=== PATIENT | female | born 1985 | race African-American/Black ===

== ENCOUNTER 2020-06-07 08:32 | Emergency (ER) | payer SELFPAY ==
--- NOTE | 2020-06-07 08:57 | ER ---
Nurse's Notes [facility] Name: Melinda Villalobos Age: 34 yrs Sex: Female : 1985 Arrival Date: 06/07/2020 Time: 08:37 Bed 5 Private MD: Diagnosis: Disorder of teeth and supporting structures, unspecified-dental pain Presentation: 06/07 08:48 Chief complaint: Patient states: top right tooth pain for 2 days, reports swelling, em unable to tolerate food/drinks, denies fever, pain radiates into right ear. Coronavirus screen: Client denies travel out of the [place] in the last 14 days. At this time, the client does not indicate any symptoms associated with coronavirus-19. Ebola Screen: Patient negative for fever greater than or equal to 101.5 degrees Fahrenheit, and additional compatible Ebola Virus Disease symptoms Patient denies exposure to infectious person. Patient denies travel to an Ebola-affected area in the 21 days before illness onset. No symptoms or risks identified at this time. Initial Sepsis Screen: Does the patient meet any 2 criteria? HR > 90 bpm. No. Patient's initial sepsis screen is negative. Does the patient have a suspected source of infection? No. Patient's initial sepsis screen is negative. Risk Assessment: Do you want to hurt yourself or someone else? Patient reports no desire to harm self or others. Onset of symptoms was June 05, 2020. 08:48 Method Of Arrival: Ambulatory em 08:48 Acuity: JAI 4 em Historical: - Allergies: 08:51 No Known Allergies; em - Home Meds: 08:51 None [Active]; em - PMHx: 08:51 None; em - PSHx: 08:51 None; em - Immunization history:: Adult Immunizations up to date. - Social history:: Smoking status: Patient denies any tobacco usage or history of. Screenin:52 Abuse screen: Denies threats or abuse. Nutritional screening: No deficits noted. em Tuberculosis screening: No symptoms or risk factors identified. Fall Risk None identified. Assessment: 08:53 General: Appears in no apparent distress. comfortable, Behavior is calm, cooperative, em appropriate for age, Denies fever. Pain: Complains of pain in right zygomatic area and right cheek Pain currently is 10 out of 10 on a pain scale. Neuro: Level of Consciousness is awake, alert, obeys commands, Oriented to person, place, time, situation, Appropriate for age. Cardiovascular: Capillary refill < 3 seconds Patient's skin is warm and dry. Respiratory: Airway is patent Respiratory effort is even, unlabored, Respiratory pattern is regular, symmetrical. GI: Abdomen is round non-distended. EENT: Oral mucosa is moist. Derm: Skin is intact, is healthy with good turgor, Skin is pink, warm \T\ dry. Musculoskeletal: Capillary refill < 3 seconds, Range of motion: intact in all extremities. Vital Signs: 08:48 BP 129 / 84; Pulse 106; Resp 20; Temp 97.6; Pulse Ox 100% on R/A; Weight 77.11 kg (R); em Height 5 ft. 2 in. (157.48 cm); Pain 10/10; 08:48 Body Mass Index 31.09 (77.11 kg, 157.48 cm) em ED Course: 08:37 Patient arrived in ED. mr 08:41 Henrik Lord RN is Primary Nurse. em 08:43 Ravi Duarte NP is PHCP. pm1 08:43 Jacques Doshi MD is Attending Physician. pm1 08:51 Triage completed. em 08:51 Arm band placed on. em 08:52 Patient has correct armband on for positive identification. Bed in low position. Call em light in reach. Pulse ox on. NIBP on. 09:09 No provider procedures requiring assistance completed. Patient did not have IV access em during this emergency room visit. Administered Medications: 09:08 Drug: TORadol 60 mg Route: IM; Site: left gluteus; em 09:27 Follow up: Response: No adverse reaction em Outcome: 08:56 Discharge ordered by . pm1 09:22 Discharged to home ambulatory. em 09:22 Condition: good 09:22 Discharge instructions given to patient, Instructed on discharge instructions, follow up and referral plans. medication usage, Demonstrated understanding of instructions, follow-up care, medications, Prescriptions given X 2. 09:27 Patient left the ED. em Signatures: Afshan Jackson mr Henrik Lord RN RN em Ravi Duarte NP INTRANET SPECIALIST pm1
--- NOTE | 2020-06-07 08:57 | EDPHYS ---
Physician Documentation [facility] Name: Melinda Villalobos Age: 34 yrs Sex: Female : 1985 Arrival Date: 06/07/2020 Time: 08:37 Bed 5 Private MD: ED Physician Jacques Doshi HPI: 06/07 08:53 This 34 yrs old Black Female presents to ER via Ambulatory with complaints of Toothache.pm1 08:53 The patient presents with pain, swelling. The problem is located in the upper right pm1 second molar. Onset: The symptoms/episode began/occurred 2 day(s) ago. Modifying factors: the symptoms are aggravated by eating and drinking. Associated signs and symptoms: Pertinent negatives: dysphagia, fever, inability to eat, vomiting. Severity of symptoms: in the emergency department the symptoms are actually worse. The patient has not recently seen a physician. Patient with dental pain to the left upper molar for the past 2 days. Has had issues with this same tooth for many months. Initially cracked and has slowly eroded away. Patient is able to eat and drink but painful to molar. Historical: - Allergies: 08:51 No Known Allergies; em - Home Meds: 08:51 None [Active]; em - PMHx: 08:51 None; em - PSHx: 08:51 None; em - Immunization history:: Adult Immunizations up to date. - Social history:: Smoking status: Patient denies any tobacco usage or history of. ROS: 08:53 Constitutional: Negative for fever, chills, and weight loss, Eyes: Negative for injury, pm1 pain, redness, and discharge. 08:53 ENT: Positive for dental pain, ear pain. 08:53 Cardiovascular: Negative for chest pain, palpitations, and edema, Respiratory: Negative pm1 for shortness of breath, cough, wheezing, and pleuritic chest pain, Abdomen/GI: Negative for abdominal pain, nausea, vomiting, diarrhea, and constipation, Skin: Negative for injury, rash, and discoloration, Neuro: Negative for headache, weakness, numbness, tingling, and seizure. 08:53 ENT: Negative for sore throat, difficulty swallowing, difficulty handling secretions, hoarseness. 08:53 Neck: Positive for swollen nodes, Negative for pain with movement, pain at rest, stiffness. Exam: 08:53 Constitutional: This is a well developed, well nourished patient who is awake, alert, pm1 and in no acute distress. Head/Face: Normocephalic, atraumatic. 08:53 Chest/axilla: Normal chest wall appearance and motion. Nontender with no deformity. No lesions are appreciated. 08:53 Back: No spinal tenderness. No costovertebral tenderness. Full range of motion. Skin: Warm, dry with normal turgor. Normal color with no rashes, no lesions, and no evidence of cellulitis. MS/ Extremity: Pulses equal, no cyanosis. Neurovascular intact. Full, normal range of motion. 08:53 ENT: External ear(s): are unremarkable, Ear canal(s): are normal, TM's: are normal, Posterior pharynx: no acute changes, Dental exam: abscess, is not appreciated, cellulitis, is not appreciated, dental caries, that is moderate, specifically in the upper right second molar (#2) and lower right first molar (#30), Upper right second molar eroded to the gum line, gum swelling, not appreciated, missing teeth, specifically the lower right second molar (#31), No trismus. 08:53 Neck: External neck: is normal, Lymph nodes: lymphadenopathy is appreciated, Right preauricular and right anterior cervical chain. 08:53 Cardiovascular: Exam negative for acute changes, Rate: normal, Rhythm: regular, Pulses: no pulse deficits are appreciated. 08:53 Respiratory: Exam negative for acute changes, respiratory distress, shortness of breath. 08:53 Neuro: Exam negative for acute changes, Orientation: is normal, Mentation: is normal, Motor: is normal, moves all fours. Vital Signs: 08:48 BP 129 / 84; Pulse 106; Resp 20; Temp 97.6; Pulse Ox 100% on R/A; Weight 77.11 kg (R); em Height 5 ft. 2 in. (157.48 cm); Pain 10/10; 08:48 Body Mass Index 31.09 (77.11 kg, 157.48 cm) em MDM: 08:43 Patient medically screened. pm1 08:53 Data reviewed: vital signs. Data interpreted: Pulse oximetry: on room air is 100 %. pm1 Interpretation: normal. Counseling: I had a detailed discussion with the patient and/or guardian regarding: the historical points, exam findings, and any diagnostic results supporting the discharge/admit diagnosis, the need for outpatient follow up, for definitive care, a dentist, to return to the emergency department if symptoms worsen or persist or if there are any questions or concerns that arise at home. 08:58 ED course: DISPERSION MIXER Aware reviewed. pm1 Administered Medications: 09:08 Drug: TORadol 60 mg Route: IM; Site: left gluteus; em 09:27 Follow up: Response: No adverse reaction em Disposition: 18:56 Co-signature as Attending Physician, Jacques Doshi MD Signing chart for administrative ps1 purposes. Did not see or evaluate patient. Not an endorsement of care. . Disposition: 06/07/20 08:56 Discharged to Home. Impression: Disorder of teeth and supporting structures, unspecified - dental pain. - Condition is Stable. - Discharge Instructions: Dental Pain. - Prescriptions for Augmentin 875- 125 mg Oral Tablet - take 1 tablet by ORAL route every 12 hours for 10 days; 20 tablet. Tylenol- Codeine #3 300-30 mg Oral Tablet - take 2 tablets by ORAL route every 6 hours As needed; 20 tablet. - Medication Reconciliation Form, Thank You Letter, Antibiotic Education, Prescription Opioid Use form. - Follow up: Emergency Department; When: As needed; Reason: Worsening of condition. Follow up: Private Physician; When: 2 - 3 days; Reason: Recheck today's complaints, Continuance of care, Re-evaluation by your physician. - Problem is new. - Symptoms have improved. Signatures: Henrik Lord RN RN em Ravi Duarte, UPHOLSTERER APPRENTICE UPHOLSTERER APPRENTICE pm1 Jacques Doshi MD MD ps1 Corrections: (The following items were deleted from the chart) 09:27 08:56 06/07/2020 08:56 Discharged to Home. Impression: Disorder of teeth and supporting em structures, unspecified - dental pain. Condition is Stable. Forms are Medication Reconciliation Form, Thank You Letter, Antibiotic Education, Prescription Opioid Use. Follow up: Emergency Department; When: As needed; Reason: Worsening of condition. Follow up: Private Physician; When: 2 - 3 days; Reason: Recheck today's complaints, Continuance of care, Re-evaluation by your physician. Problem is new. Symptoms have improved. pm1
[2020-06-07] MEDS ORDERED: KETOROLAC 30 MG/ML INJ ONE (09:15)
[2020-06-07 09:51] VITALS: BP 129/84; TEMP 97.6; O2SAT 100
== END 2020-06-07 09:27 | disposition home or self-care (01) ==
LOC: ER 08:32
DX: K08.89 Other specified disorders of teeth and supporting structures (principal)
CPT/HCPCS: 96372; 99283